=== PATIENT | male | born 1985 | race Caucasian/White ===

== ENCOUNTER → 2016-03-18 | Outpatient (CLI) | payer BC ==
--- NOTE | 2016-03-18 10:49 | DX ---
Bilateral Ankles, Six Views Total Indication: Pain. Evaluate for mid fibular and syndesmotic injury. Findings: The distal two thirds of the right and left fibulas and tibias are intact and anatomically aligned. No fracture or periosteal reaction. Bilateral ankles are anatomically aligned with well-pres erved mortises. No widening of the distal tibiofibular articulation at the syndesmosis. Joint spaces are well preserved. Impression: Negative. No fracture or evidence of acute or old syndesmotic injury.
== END ==
LOC: BMCIMAGING 09:06
PROVIDERS: ATTEND Podiatrist Foot & Ankle Surgery
DX: M25.571 Pain in right ankle and joints of right foot (principal); M25.572 Pain in left ankle and joints of left foot

== ENCOUNTER 2018-04-02 12:03 | Day surgery (SDC) | payer BC, OTHER ==
[2018-04-02] MEDS ORDERED: FLUMAZENIL 0.5 MG/5 ML MDV IVP PRN (12:05)
[2018-04-02] MEDS ORDERED: fentaNYL 100 MCG/2 ML INJ IVP PRN (12:05)
[2018-04-02] MEDS ORDERED: MIDAZOLAM 2 MG/2 ML VIAL IVP PRN (12:05)
[2018-04-02] MEDS ORDERED: ONDANSETRON 4 MG/2 ML VIAL IVP ONE (12:05)
[2018-04-02] MEDS ORDERED: NALOXONE HCL 0.4 MG/ML INJ IVP PRN (12:05)
[2018-04-02] MEDS ORDERED: NS 1,000 ML IV SCH (12:15)
[2018-04-02] MEDS ORDERED: TRIAMCINOLONE ACETONIDE 200 MG/5 ML MDV IM ONE (12:42)
[2018-04-02] MEDS ORDERED: IOPAMIDOL (ISOVUE-M 300) 15 ML VIAL ONE (12:42)
--- NOTE | 2018-04-02 13:16 | PDPROPOC ---
Sedation Plan of Care Sedation Plan of Care: vital signs stable, mental status noted, patient educated of risks, benefits, alternatives, patient can tolerate sedation ASA Classification: ASA 2 Planned drugs: fentanyl, midazolam Mallampati Score: Class 1 Mallampati Reference Image: Patient passed 3-3-2 rule?: Yes
--- NOTE | 2018-04-02 13:16 | PDRADPRE ---
Radiology History & Physical Indication for procedure: back pain (with sacral radiculopathies; Order requests caudal JENNIFER) Home medications: Mvi with Vit K 1 tab PO DAILY 03/27/18 [Last Taken Unknown] [place]-3 1 tab PO 03/27/18 [Last Taken Unknown] Vit D3-Vit K/Berberine/Hops 5,000 units PO DAILY 03/27/18 [Last Taken Unknown] Allergies/Adverse Reactions: hydrocodone Allergy (Verified 03/27/18 13:56) Itching Mental status: A&Ox3 Heart exam: regular rate and rhythm Lungs exam: clear to auscultation Mallampati Score: Class 2
[2018-04-02] MEDS ORDERED: BUPIVACAINE 0.5% 30 ML SDV ONE (14:14)
--- NOTE | 2018-04-02 14:15 | PDRADPN ---
Radiology Procedure Note Date of Procedure: 04/02/18 Radiologist: Anthony Waddell Anesthesia: IV Sedation Pre-op Diagnosis: LBP Post-op Diagnosis: LBP Indication: Sacral radiculopathies Procedure: Caudal JENNIFER Finding(s): Successful caudal JENNIFER Inf/Abcess present in the surg proc area at time of surgery?: No
[2018-04-02] MEDS ORDERED: ONDANSETRON 4 MG/2 ML VIAL IVP PRN (14:17)
[2018-04-02 15:48] VITALS: BP 126/77
== END 2018-04-02 15:50 | disposition home or self-care (01) ==
LOC: FIMAGING 12:03
PROVIDERS: ATTEND Physical Medicine & Rehabilitation
DX: M54.17 Radiculopathy, lumbosacral region (principal)
CPT/HCPCS: J2250; J2310; J3010; J3301; Q9967